=== PATIENT | female | born 1960 | race Hispanic/Latino ===

== ENCOUNTER 2019-05-19 | Emergency (ER) | payer SELFPAY ==
[2019-05-19 18:40] LABS: HEMATOCRIT 41.9 % (37.0-47.0); HEMOGLOBIN 13.7 g/dl (12.0-16.0); IMMATURE GRANULOCYTES 0.8 % (0.0-5.0); MEAN CELL VOLUME 92.3 fL CALC (80.0-100.0); MEAN CORPUSCULAR HGB 30.2 pG CALC (26.0-32.0); MEAN CORPUSCULAR HGB CONC 32.7 g/L CALC (32.0-36.0); NEUT# 4.43 thou/uL (2.00-7.15); RED BLOOD COUNT 4.54 mill/uL (4.20-5.60); RED CELL DISTRI WIDTH 12.8 % (11.5-15.5)
[2019-05-19 18:47] LABS: ALBUMIN 4.3 g/dL (3.2-5.0); ALKALINE PHOSPHATASE 174 u/l (38-126); ANION GAP 13 (6-22 (CALC)); BILIRUBIN, TOTAL 0.3 mg/dL (0.0-1.4); BUN 25 mg/dL (7-17); BUN/CREATININE RATIO 36 (12-20 (CALC)); CARBON DIOXIDE 29 mmol/l (22-30); CHLORIDE 96 mmol/l (95-108); CREATININE 0.7 mg/dL (0.5-1.0); GFR > 60 ML/MIN (>=60 (CALC)); GFR FOR AFR.AMER. > 60 ML/MIN (>=60 (CALC)); POTASSIUM 4.1 mmol/l (3.5-5.1); SGOT/AST 26 u/l (14-36); SODIUM 134 mmol/l (137-146); TOTAL PROTEIN 8.1 g/dL (6.3-8.2)
[2019-05-19 18:59] LABS: MYOGLOBIN 38 ng/mL (0 - 62)
[2019-05-19] MEDS ORDERED: CYCLOBENZAPR10 MG PO (19:57)
[2019-05-19] MEDS ORDERED: GABAPENTIN100 MG PO (19:57)
[2019-05-19] MEDS ORDERED: PAROXETINE10 MG PO (19:58)
[2019-05-19] MEDS ORDERED: TRAZODONE50 MG PO (19:58)
[2019-05-19] MEDS ORDERED: MELOXICAM7.5 MG PO (19:58)
[2019-05-19] MEDS ORDERED: LIPITOR20 M1 PO (19:59)
[2019-05-19] MEDS ORDERED: GLIMEPIRIDE2 MG PO (19:59)
[2019-05-19] MEDS ORDERED: KEPPRA750 M2 PO (20:00)
[2019-05-19] MEDS ORDERED: HYDROCO/APAP1 T13 PO (20:00)
[2019-05-19 21:40] LABS: URINE BILIRUBIN - DIPSTICK NEGATIVE (NEGATIVE); URINE BLOOD DIPSTICK NEGATIVE (NEGATIVE); URINE COLOR YELLOW; URINE GLUCOSE - DIPSTICK >=1000 mg/dL (NEGATIVE); URINE KETONE NEGATIVE (NEGATIVE); URINE LEUK ESTERASE NEGATIVE (NEGATIVE); URINE NITRITE - DIPSTICK NEGATIVE (Negative); URINE PROTEIN - DIPSTICK NEGATIVE (NEG-TRACE); URINE UROBILINOGEN - DIPSTICK 0.2 E.U./dL (0.2)
[2019-05-19 21:43] LABS: COCAINE NEGATIVE (NEGATIVE); METHADONE NEGATIVE (NEGATIVE); TETRAHYDROCANNABIONOL NEGATIVE (NEGATIVE)
[2019-05-19 21:44] LABS: BARBITURATES NEGATIVE (NEGATIVE); OXCYCODONE POSITIVE (NEGATIVE); TRICYLIC ANTIDEPRESSANTS POSITIVE (NEGATIVE)
== END 2019-05-19 22:20 | disposition home or self-care (01) ==
PROVIDERS: Emergency Medicine
DX: G40.409 Other generalized epilepsy and epileptic syndromes, not intractable, without status epilepticus (principal); E11.9 Type 2 diabetes mellitus without complications; Z79.84 Long term (current) use of oral hypoglycemic drugs

== ENCOUNTER 2019-05-21 | Emergency (ER) | payer SELFPAY ==
[~2019-05-21] MED LIST: CYCLOBENZAPR10 MG PO; GABAPENTIN100 MG PO; GLIMEPIRIDE2 MG PO; HYDROCO/APAP1 T13 PO; KEPPRA750 M2 PO; LIPITOR20 M1 PO; MELOXICAM7.5 MG PO; PAROXETINE10 MG PO; TRAZODONE50 MG PO
[2019-05-21 18:52] LABS: HEMATOCRIT 37.7 % (37.0-47.0); HEMOGLOBIN 12.4 g/dl (12.0-16.0); IMMATURE GRANULOCYTES 0.8 % (0.0-5.0); MEAN CELL VOLUME 92.4 fL CALC (80.0-100.0); MEAN CORPUSCULAR HGB 30.4 pG CALC (26.0-32.0); MEAN CORPUSCULAR HGB CONC 32.9 g/L CALC (32.0-36.0); NEUT# 4.72 thou/uL (2.00-7.15); RED BLOOD COUNT 4.08 mill/uL (4.20-5.60); RED CELL DISTRI WIDTH 12.8 % (11.5-15.5)
[2019-05-21 19:07] LABS: ALKALINE PHOSPHATASE 121 u/l (38-126); ANION GAP 11 (6-22 (CALC)); BILIRUBIN, TOTAL 0.4 mg/dL (0.0-1.4); BUN 26 mg/dL (7-17); BUN/CREATININE RATIO 48 (12-20 (CALC)); CARBON DIOXIDE 29 mmol/l (22-30); CHLORIDE 99 mmol/l (95-108); CREATININE 0.5 mg/dL (0.5-1.0); GFR > 60 ML/MIN (>=60 (CALC)); GFR FOR AFR.AMER. > 60 ML/MIN (>=60 (CALC)); POTASSIUM 4.3 mmol/l (3.5-5.1); SGOT/AST 33 u/l (14-36); SODIUM 135 mmol/l (137-146); TOTAL PROTEIN 7.5 g/dL (6.3-8.2)
[2019-05-21 20:47] LABS: URINE BILIRUBIN - DIPSTICK NEGATIVE (NEGATIVE); URINE BLOOD DIPSTICK NEGATIVE (NEGATIVE); URINE COLOR YELLOW; URINE GLUCOSE - DIPSTICK 500 mg/dL (NEGATIVE); URINE KETONE NEGATIVE (NEGATIVE); URINE LEUK ESTERASE NEGATIVE (NEGATIVE); URINE NITRITE - DIPSTICK NEGATIVE (Negative); URINE PROTEIN - DIPSTICK NEGATIVE (NEG-TRACE); URINE SPECIFIC GRAVITY 1.025; URINE UROBILINOGEN - DIPSTICK 0.2 E.U./dL (0.2)
== END 2019-05-21 20:15 | disposition home or self-care (01) | DRG 880 ==
PROVIDERS: Family Medicine
DX: F44.5 Conversion disorder with seizures or convulsions (principal); E11.9 Type 2 diabetes mellitus without complications; F17.210 Nicotine dependence, cigarettes, uncomplicated; Z79.84 Long term (current) use of oral hypoglycemic drugs